=== PATIENT | female | born 1985 | race Caucasian/White ===

== ENCOUNTER 2017-10-26 08:55 | Observation (INO) | payer OTHER ==
[~2017-10-26] VITALS: Ht 167.6 cm; Wt 80.3 kg
[2017-10-26 09:09] VITALS: BP 125/81
[2017-10-26 09:27] LABS: GLUCOMETER DEV NAME(LOC) 4S 8; GLUCOSE,POINT OF CARE 61 MG/DL (70-110)
[2017-10-26] MEDS ORDERED: PREN1TAB80 PO (09:37)
[2017-10-26] MEDS ORDERED: GLYB2.5 PO (09:38)
== END 2017-10-26 09:50 | disposition home or self-care (01) ==
LOC: 4S 08:55
PROVIDERS: ADMIT Obstetrics & Gynecology; ATTEND Obstetrics & Gynecology
DX: O24.415 Gestational diabetes mellitus in pregnancy, controlled by oral hypoglycemic drugs (principal); Z3A.39 39 weeks gestation of pregnancy
CPT/HCPCS: 59025; 82962; G0378

== ENCOUNTER 2017-10-31 14:25 | Inpatient (IN) | payer OTHER ==
[~2017-10-31] VITALS: Ht 167.6 cm; Wt 79.8 kg
[~2017-10-31 14:25] MED LIST: GLYB2.5 PO; PREN1TAB80 PO
[2017-10-31 15:24] VITALS: BP 132/86
[2017-10-31 16:48] LABS: GLUCOMETER DEV NAME(LOC) 4S 8; GLUCOSE,POINT OF CARE 61 MG/DL (70-110)
[2017-10-31] MEDS ORDERED: RINGERS SOLUTION,LACTATED 1,000 ML IV PRN (17:29)
[2017-10-31] MEDS ORDERED: AMPICILLIN SODIUM 2 GM/NS 100 ML IV ONE (17:30)
[2017-10-31] MEDS ORDERED: FentaNYL CITRATE-PF 100 MCG/2 ML VIAL IVP PRN (17:30)
[2017-10-31] MEDS ORDERED: METOCLOPRAMIDE HCL 5 MG/ML 2 ML VIAL IVP PRN (17:30)
[2017-10-31] MEDS ORDERED: METHYLERGONOVINE MALEATE 0.2 MG/ML VIAL IM PRN (17:30)
[2017-10-31] MEDS ORDERED: CITRIC ACID/SODIUM CITRATE 30 ML SOLUTION UDCUP PO PRN (17:30)
[2017-10-31] MEDS ORDERED: LIDOCAINE HCL/PF 1% 30 ML VIAL INJ PRN (17:30)
[2017-10-31 18:13] LABS: BASOPHILS % (AUTO) 0.4 % (0.0-2.0); HEMATOCRIT 41.1 % (36-46); HEMOGLOBIN 14.2 g/dL (12.0-16.0); LYMPHOCYTES # (AUTO) 1.3 K/uL (1.0-4.8); MEAN CORPUSCULAR HEMOGLOBIN 31.2 pg (26.0-34.0); MEAN CORPUSCULAR HGB CONC 34.6 G/dL (31.0-37.0); MEAN CORPUSCULAR VOLUME 90 fL (80-100); MONOCYTES # (AUTO) 0.6 K/uL (0.1-1.0); MONOCYTES % (AUTO) 6.5 % (2.0-9.0); NEUTROPHILS # (AUTO) 7.3 K/uL (1.8-7.7); NEUTROPHILS % (AUTO) 78.1 % (40.0-70.0); PLATELET COUNT (AUTO)-OB 134 K/uL (150-450); RED BLOOD CELL COUNT(AUTO) 4.55 MIL/uL (4.00-5.20); RED CELL DISTRIBUTION WIDTH 14.2 % (11.5-14.5)
[2017-10-31] MEDS: RINGERS SOLUTION,LACTATED 1,000 ML IV SCH (18:32)
[2017-10-31] MEDS ORDERED: OXYGEN THERAPY IH SCH (20:00)
[2017-10-31 20:33] LABS: GLUCOMETER DEV NAME(LOC) 4S 8; GLUCOSE,POINT OF CARE 76 MG/DL (70-110)
[2017-10-31] MEDS: AMPICILLIN SODIUM 1 GM/NS 50 ML IV SCH (23:14)
[2017-10-31] MEDS ORDERED: OXYTOCIN 30 UNITS/LACT RINGERS 500 ML IV PRN (23:41)
[2017-10-31] MEDS ORDERED: OXYTOCIN 30 UNITS/LACT RINGERS 500 ML IV ONE (23:43)
[2017-11-01] MEDS ORDERED: LIDOCAINE HCL/PF 2% 5 ML VIAL ONE (00:04)
[2017-11-01] MEDS ORDERED: ROPIVACAINE HCL/PF 0.2% 100 ML ED ONE ×2 (00:04→08:53)
[2017-11-01] MEDS ORDERED: FentaNYL/BUPIV 0.125%/NS/PF 200 ML ED PRN (00:24)
[2017-11-01] MEDS ORDERED: NALBUPHINE HCL 10 MG/ML VIAL IVP PRN (00:30)
[2017-11-01] MEDS ORDERED: ONDANSETRON HCL 4 MG/2 ML VIAL IVP PRN (00:30)
[2017-11-01] MEDS ORDERED: DiphenhydrAMINE HCL 50 MG/ML VIAL IVP PRN (00:30)
[2017-11-01] MEDS: RINGERS SOLUTION,LACTATED 1,000 ML IV SCH (00:34)
[2017-11-01] MEDS: AMPICILLIN SODIUM 1 GM/NS 50 ML IV SCH ×2 (02:58→06:52)
[2017-11-01] MEDS ORDERED: OXYTOCIN 20 UNITS/LACT RINGERS 1,000 ML IV ONE (10:12)
[2017-11-01] MEDS ORDERED: OXYTOCIN 20 UNITS/LACT RINGERS 1,000 ML IV SCH (10:37)
[2017-11-01] MEDS ORDERED: BENZOCAINE 20%/MENTHOL 56 GM SPRAY CANISTER TP PRN (10:45)
[2017-11-01] MEDS ORDERED: LANOLIN 7 GM OINTMENT TP PRN (10:45)
[2017-11-01] MEDS ORDERED: SENNA/DOCUSATE SODIUM 187-50 MG TABLET PO PRN (10:45)
[2017-11-01] MEDS ORDERED: MEASLES/MUMPS/RUBELLA VACCINE, LIVE 0.5 ML/VIAL SQ ONE (10:45)
[2017-11-01] MEDS ORDERED: MAGNESIUM HYDROXIDE SUSPENSION 30 ML UDCUP PO PRN (10:45)
[2017-11-01] MEDS ORDERED: ACETAMINOPHEN/CODEINE 300-30 MG TABLET PO PRN (10:45)
[2017-11-01] MEDS ORDERED: GLYCERIN/WITCH HAZEL LEAF 40 PADS JAR TP PRN (10:45)
[2017-11-01] MEDS: IBUPROFEN 600 MG TABLET PO PRN ×2 (13:24→20:44)
[2017-11-01 23:21] VITALS: BP 115/73
[2017-11-02] MEDS: IBUPROFEN 600 MG TABLET PO PRN (03:40)
[2017-11-02 06:13] LABS: BASOPHILS % (AUTO) 0.4 % (0.0-2.0); EOSINOPHILS % (AUTO) 1.1 % (1.0-6.0); HEMOGLOBIN 11.1 g/dL (12.0-16.0); LYMPHOCYTES # (AUTO) 1.4 K/uL (1.0-4.8); LYMPHOCYTES % (AUTO) 13.7 % (22.0-44.0); MEAN CORPUSCULAR HEMOGLOBIN 32.2 pg (26.0-34.0); MEAN CORPUSCULAR HGB CONC 35.7 G/dL (31.0-37.0); MEAN CORPUSCULAR VOLUME 90 fL (80-100); MONOCYTES # (AUTO) 0.7 K/uL (0.1-1.0); MONOCYTES % (AUTO) 7.2 % (2.0-9.0); NEUTROPHILS % (AUTO) 77.6 % (40.0-70.0); PLATELET COUNT (AUTO)-OB 102 K/uL (150-450); RED BLOOD CELL COUNT(AUTO) 3.44 MIL/uL (4.00-5.20); RED CELL DISTRIBUTION WIDTH 14.9 % (11.5-14.5)
[2017-11-02] MEDS ORDERED: IBUP-2071 PO (09:00)
[2017-11-02] MEDS ORDERED: DSS100 PO (09:01)
[2017-11-02] MEDS ORDERED: FERR-89 PO (09:02)
== END 2017-11-02 11:45 | disposition home or self-care (01) | DRG 775 ==
LOC: 4S 14:25 → OBSVTOIN 17:20
PROVIDERS: ADMIT Obstetrics & Gynecology; ATTEND Obstetrics & Gynecology
PROC: 10E0XZZ Delivery of Products of Conception, External Approach (ICD-10-PCS; principal; 2017-11-01)
PROC: 0KQM0ZZ Repair Perineum Muscle, Open Approach (ICD-10-PCS; 2017-11-01)
DX: O69.81X0 Labor and delivery complicated by cord around neck, without compression, not applicable or unspecified (principal); O70.1 Second degree perineal laceration during delivery; Z3A.40 40 weeks gestation of pregnancy; Z37.0 Single live birth
CPT/HCPCS: 76805; 86850; 86900; 86901; J0290; J2590; J2795; J3490; J7120

== ENCOUNTER 2020-04-25 03:21 | Inpatient (IN) | payer OTHER ==
[~2020-04-25] VITALS: Ht 169 cm; Wt 77.6 kg
[~2020-04-25 03:21] MED LIST changes: +DSS100 PO; +FERR-89 PO; -GLYB2.5 PO; +IBUP-2071 PO
[2020-04-25 04:31] VITALS: BP 124/84
[2020-04-25 04:57] LABS: COVID AG,FIA SOURCE NASOPHARYNGEAL
[2020-04-25] MEDS ORDERED: OXYGEN THERAPY IH SCH (08:00)
[2020-04-25] MEDS ORDERED: OXYTOCIN 30 UNITS/LACT RINGERS 500 ML IV ONE ×2 (08:00→17:00)
[2020-04-25] MEDS ORDERED: RINGERS SOLUTION,LACTATED 1,000 ML IV PRN (08:00)
[2020-04-25] MEDS ORDERED: AMPICILLIN SODIUM 2 GM/NS 100 ML IV ONE (08:00)
[2020-04-25] MEDS ORDERED: METOCLOPRAMIDE HCL 5 MG/ML 2 ML VIAL IVP PRN (08:00)
[2020-04-25] MEDS ORDERED: CITRIC ACID/SODIUM CITRATE 30 ML SOLUTION UDCUP PO PRN (08:00)
[2020-04-25] MEDS ORDERED: METHYLERGONOVINE MALEATE 0.2 MG/ML VIAL IM PRN (08:00)
[2020-04-25] MEDS ORDERED: FentaNYL CITRATE-PF 100 MCG/2 ML VIAL IVP PRN (08:00)
[2020-04-25] MEDS: RINGERS SOLUTION,LACTATED 1,000 ML IV SCH ×2 (08:01→15:03)
[2020-04-25 08:22] LABS: BASOPHILS % (AUTO) 0.3 % (0.0-2.0); EOSINOPHILS % (AUTO) 0.2 % (1.0-6.0); HEMATOCRIT 38.9 % (36-46); HEMOGLOBIN 13.4 g/dL (12.0-16.0); LYMPHOCYTES # (AUTO) 1.1 K/uL (1.0-4.8); LYMPHOCYTES % (AUTO) 12.9 % (22.0-44.0); MEAN CORPUSCULAR HEMOGLOBIN 32.1 pg (26.0-34.0); MEAN CORPUSCULAR HGB CONC 34.4 G/dL (31.0-37.0); MEAN CORPUSCULAR VOLUME 93 fL (80-100); MONOCYTES # (AUTO) 0.5 K/uL (0.1-1.0); MONOCYTES % (AUTO) 6.1 % (2.0-9.0); NEUTROPHILS % (AUTO) 80.5 % (40.0-70.0); PLATELET COUNT (AUTO)-OB 120 K/uL (150-450); RED BLOOD CELL COUNT(AUTO) 4.17 MIL/uL (4.00-5.20); RED CELL DISTRIBUTION WIDTH 13.3 % (11.5-14.5)
[2020-04-25] MEDS ORDERED: ROPIVACAINE HCL/PF 0.2% 100 ML ED ONE (08:52)
[2020-04-25] MEDS ORDERED: ONDANSETRON HCL 4 MG/2 ML VIAL IVP PRN (09:00)
[2020-04-25] MEDS ORDERED: NALBUPHINE HCL 10 MG/ML VIAL IVP PRN (09:00)
[2020-04-25] MEDS ORDERED: DiphenhydrAMINE HCL 50 MG/ML VIAL IVP PRN (09:00)
[2020-04-25] MEDS ORDERED: ROPIVACAINE HCL/PF 0.2% 100 ML ED PRN (09:00)
[2020-04-25] MEDS ORDERED: OXYTOCIN 30 UNITS/LACT RINGERS 500 ML IV PRN (11:00)
[2020-04-25] MEDS: AMPICILLIN SODIUM 1 GM/NS 50 ML IV SCH ×2 (11:08→15:56)
[2020-04-25] MEDS ORDERED: LIDOCAINE/PF 1% 30 ML VIAL INJ PRN (17:00)
[2020-04-25] MEDS ORDERED: MAGNESIUM HYDROXIDE SUSPENSION 30 ML UDCUP PO PRN (17:00)
[2020-04-25] MEDS ORDERED: OxyCODONE HCL/ACETAMINOPHEN 5-325 MG TABLET PO PRN ×2 (17:00)
[2020-04-25] MEDS ORDERED: BENZOCAINE 20%/MENTHOL 56 GM SPRAY CANISTER TP PRN (17:00)
[2020-04-25] MEDS ORDERED: GLYCERIN/WITCH HAZEL LEAF 40 PADS JAR TP PRN (17:00)
[2020-04-25] MEDS ORDERED: LANOLIN 7 GM OINTMENT TP PRN (17:00)
[2020-04-25] MEDS: IBUPROFEN 800 MG TABLET PO PRN (18:56)
[2020-04-26 01:58] VITALS: BP 117/78
[2020-04-26 07:00] LABS: BASOPHILS % (AUTO) 0.3 % (0.0-2.0); EOSINOPHILS % (AUTO) 0.4 % (1.0-6.0); HEMATOCRIT 34.8 % (36-46); HEMOGLOBIN 12.2 g/dL (12.0-16.0); LYMPHOCYTES # (AUTO) 1.3 K/uL (1.0-4.8); LYMPHOCYTES % (AUTO) 13.7 % (22.0-44.0); MEAN CORPUSCULAR HEMOGLOBIN 32.7 pg (26.0-34.0); MEAN CORPUSCULAR HGB CONC 34.9 G/dL (31.0-37.0); MEAN CORPUSCULAR VOLUME 94 fL (80-100); MONOCYTES # (AUTO) 0.7 K/uL (0.1-1.0); MONOCYTES % (AUTO) 7.9 % (2.0-9.0); NEUTROPHILS # (AUTO) 7.3 K/uL (1.8-7.7); NEUTROPHILS % (AUTO) 77.7 % (40.0-70.0); PLATELET COUNT (AUTO)-OB 108 K/uL (150-450); RED BLOOD CELL COUNT(AUTO) 3.72 MIL/uL (4.00-5.20); RED CELL DISTRIBUTION WIDTH 13.7 % (11.5-14.5)
[2020-04-26] MEDS: IBUPROFEN 800 MG TABLET PO PRN (10:42)
== END 2020-04-26 17:00 | disposition home or self-care (01) | DRG 807 ==
LOC: 4S 03:21 → OBSVTOIN 03:21
PROVIDERS: ADMIT Obstetrics & Gynecology Obstetrics; ATTEND Obstetrics & Gynecology Obstetrics
PROC: 10E0XZZ Delivery of Products of Conception, External Approach (ICD-10-PCS; principal; 2020-04-25)
PROC: 10907ZC Drainage of Amniotic Fluid, Therapeutic from Products of Conception, Via Natural or Artificial Opening (ICD-10-PCS; 2020-04-25)
PROC: 30233S1 Transfusion of Nonautologous Globulin into Peripheral Vein, Percutaneous Approach (ICD-10-PCS; 2020-04-25)
PROC: 3E0R3BZ Introduction of Anesthetic Agent into Spinal Canal, Percutaneous Approach (ICD-10-PCS; 2020-04-25)
PROC: 00HU33Z Insertion of Infusion Device into Spinal Canal, Percutaneous Approach (ICD-10-PCS; 2020-04-25)
DX: O99.824 Streptococcus B carrier state complicating childbirth (principal); Z37.0 Single live birth; Z20.828 Contact with and (suspected) exposure to other viral communicable diseases; Z3A.39 39 weeks gestation of pregnancy
CPT/HCPCS: 85461; 86850; 86870; 86900; 86901; 87426; J0290; J2590; J2795; J7120